=== PATIENT | female | born 1950 | race Two or more races ===

== ENCOUNTER 2025-06-17 07:55 | Day surgery (SDC) | payer BC, MEDICARE ==
[~2025-06-17] VITALS: Ht 167.6 cm; Wt 74.8 kg
[~2025-06-17 07:55] MED LIST: CARV-214 OR; EMPA1TAB3 PO; ROSU10TA16 PO; SITA100T7 PO
[2025-06-17] MEDS: HEPARIN SODIUM (PORCINE) 5000 UNITS/ML 1ML VIAL ONE (10:28)
[2025-06-17] MEDS: ANGIOMAX 250 MG VIAL IV ONE (10:28)
[2025-06-17] MEDS: VERAPAMIL 2.5MG/ML INJ 2ML VIAL IV ONE (10:28)
[2025-06-17] MEDS: fentaNYL CITRATE 100 MCG/2 ML VL ONE (10:29)
[2025-06-17] MEDS: MIDAZOLAM HCL 2MG/2ML 2ml VIAL (1mg/ml) ONE (10:29)
[2025-06-17] MEDS: SODIUM CHL 0.9% 0 ML ONE (10:29)
[2025-06-17] MEDS: LIDOCAINE 2%HCL (LOCAL ANESTH.) INJ 20ML MDV ONE (10:29)
[2025-06-17] MEDS: IODIXANOL 320MG/ML 100ML BTL IV ONE (10:29)
[2025-06-17 12:30] VITALS: BP 149/75; PULSE 65; RESP 18
--- NOTE | 2025-06-17 12:49 | DVHOP2 ---
Operative Report Procedures performed: Left heart catheterization and bilateral coronary angiogram Moderate sedation Diagnosis: No angiographic evidence for epicardial coronary artery disease (normal coronaries) LVEF: 60% Cardiac suggestion for management: Optimized medical therapy Lifestyle and risk factor modifications Findings: LVEF: 60% LVEDP: 10 mm Hg Left main: Left main was coming off the left sinus of Valsalva. It was free of disease. LAD: LAD was coming off the left main. It provided usual numbers of diagonals and septals. It was free of disease. LCX: LCX was coming off the left main. It was a dominant vessel and provided LPDA. LCX throughout its course and branches was free of disease. RCA: RCA was coming off the right sinus of Valsalva. It was free of disease Presentation: Patient is a 75-year-old female who presented to the office with chest discomfort and palpitation. Past medical history includes diabetes mellitus, hypertension, hyperlipidemia and status post tubal ligation. Echocardiogram of January 2025 revealed ejection fraction 55-60%, abnormal relaxation of left ventricle, mild left atrial enlargement and right ventricular systolic pressure of less than 35 mm Hg. Nuclear stress test of January 2025 was abnormal and the patient was sent for cardiac catheterization. Procedure: After obtaining informed consent, the patient was brought to the energy systems laboratory director. She was prepped and draped in sterile fashion. Right radial artery was used for access site. 0.5 mg of Versed and 25 mcg of fentanyl were used for moderate sedation. Using Seldinger technique, the right radial artery was accessed and a 6 [place]ian slender sheath was inserted into it. 2.5 mg of verapamil and 100 mcg of nitroglycerin were given as a cocktail into right radial sheath. 4500 units of heparin was given peripherally. A 5 [place]ian tiger 4 diagnostic catheter was used to perform left heart catheterization (obtaining pressures and performing left ventriculography) and bilateral coronary angiography. There was no indication for any transcatheter revascularization. Total bleeding was less than 5 mL. There was no dissection/hematoma/perforation. Patient tolerated the procedure with no complication. Right radial artery access site was managed by deploying a TR band Fluoroscopy time: 2.7 minutes contrast: 25 mL of MELECIO Martinez MD Jun 17, 2025 12:49
[2025-06-17 14:35] VITALS: BP 137/68; PULSE 65; RESP 18; O2SAT 98
== END 2025-06-17 14:43 | disposition home or self-care (01) ==
LOC: CATH 07:55
PROVIDERS: ATTEND Internal Medicine Cardiovascular Disease
DX: R07.89 Other chest pain (principal); E11.9 Type 2 diabetes mellitus without complications; E78.5 Hyperlipidemia, unspecified; I11.9 Hypertensive heart disease without heart failure; Z98.51 Tubal ligation status; R00.2 Palpitations; I10 Essential (primary) hypertension; R06.02 Shortness of breath; Z79.899 Other long term (current) drug therapy
CPT/HCPCS: 93458; C1894; J1644; J2250; J3010; J7030; Q9967; 99152